=== PATIENT | female | born 1945 | race Caucasian/White ===

== ENCOUNTER 2023-05-31 13:12 | Emergency (ER) | payer MEDICARE, BC ==
[2023-05-31] MEDS ORDERED: Ketorolac 30 MG/ML SDV IM ONE (13:37)
== END 2023-05-31 15:15 | disposition home or self-care (01) ==
LOC: VM.ED 13:12
DX: M53.3 Sacrococcygeal disorders, not elsewhere classified (principal); I10 Essential (primary) hypertension; Z87.891 Personal history of nicotine dependence
CPT/HCPCS: 72220; 96372; 99283; J1885

== ENCOUNTER 2025-04-19 08:40 | Day surgery (SDC) | payer MEDICARE, BC ==
[~2025-04-19 08:40] MED LIST: Propofol 200 MG/20 ML SDV ONE; fentaNYL 100 MCG/2 ML SDV ONE
[2025-04-19] MEDS: Lactated Ringers 1,000 ML IV SCH (08:55)
[2025-04-19] MEDS ORDERED: Propofol 200 MG/20 ML SDV ONE ×2 (10:00→11:26)
== END 2025-04-19 12:16 | disposition home or self-care (01) ==
LOC: VM.SDS 08:40
PROVIDERS: ATTEND Student in an Organized Health Care Education/Training Program
DX: K62.1 Rectal polyp (principal); K63.89 Other specified diseases of intestine; I10 Essential (primary) hypertension; E66.3 Overweight; Z88.8 Allergy status to other drugs, medicaments and biological substances; Z68.27 Body mass index [BMI] 27.0-27.9, adult; Z79.899 Other long term (current) drug therapy
CPT/HCPCS: 45380; 45385; J2704; J3010; J7120; 00811; 88305; 99100